=== PATIENT | female | born 1965 | race Caucasian/White ===

== ENCOUNTER 2024-01-11 10:58 | Outpatient (CLI) | payer BC, SELFPAY ==
--- NOTE | 2024-01-11 11:02 | XR_ITS ---
FINAL REPORT CLINICAL HISTORY: right ankle injury COMPARISON: None FINDINGS: RIGHT ANKLE 3 views of the right ankle were obtained. There is no acute fracture or dislocation. The mortise is intact. Visualized joint spaces are normally aligned. There is mild calcaneal spurring. Soft tissues are unremarkable. IMPRESSION: No acute bony abnormality. Reviewed, Interpreted and Dictated by Josefina Santana MD Transcribed by Elodia Agee Authenticated and . [facility]
--- NOTE | 2024-01-11 11:02 | XR_ITS ---
FINAL REPORT CLINICAL HISTORY: Rt Foot pain COMPARISON: None FINDINGS: RIGHT FOOT 3 views of the right foot were obtained. There is no acute fracture or dislocation. There is mild deformity of the fourth metatarsal neck compatible with old healed fracture. No significant degenerative changes are noted. Visualized joint spaces are normally aligned. Soft tissues are unremarkable. IMPRESSION: No acute bony abnormality. Reviewed, Interpreted and Dictated by Josefina Santana MD Transcribed by Elodia Agee Authenticated and [facility]
== END 2024-01-11 23:59 | disposition home or self-care (01) ==
LOC: RAD 10:59
PROVIDERS: PCP Nurse Practitioner Family; Visit Provider Physician Assistant
DX: M25.571 Pain in right ankle and joints of right foot (principal); M79.671 Pain in right foot; S99.921A Unspecified injury of right foot, initial encounter; S93.401A Sprain of unspecified ligament of right ankle, initial encounter
CPT/HCPCS: 73610; 73630

== ENCOUNTER 2024-01-25 12:09 | Outpatient (RCR) | payer BC, SELFPAY | END 2024-01-25 13:30 | disposition home or self-care (01) | LOC: PT 12:09 | PROVIDERS: Visit Provider Physician Assistant | DX: M25.571 Pain in right ankle and joints of right foot (principal); S93.401A Sprain of unspecified ligament of right ankle, initial encounter; S90.01XA Contusion of right ankle, initial encounter | CPT/HCPCS: 97760 ==

== ENCOUNTER 2024-05-08 13:30 | Emergency (ER) | payer BC, SELFPAY ==
[2024-05-08] VITALS (11 sets, daily range): BP systolic 114–142; BP diastolic 77–91; PULSE 83–99; RESP 14–16; TEMP 36.5–36.6; O2SAT 94–99; BMI 23.3
--- NOTE | 2024-05-08 13:53 | XR_ITS ---
PROCEDURE INFORMATION: Exam: XR Left Knee Exam date and time: 05/08/2024 1:53 PM Age: 59 years old Clinical indication: Injury or trauma; Fall; Blunt trauma; Knee; Left; Additional info: Fall, pain, unable to bear weight TECHNIQUE: Imaging protocol: Radiologic exam of the left knee. Views: 3 views. COMPARISON: CR XR FEMUR LT 2V 05/08/2024 1:53 PM FINDINGS: Bones/joints: Well corticated avulsion fracture of the lateral intercondylar eminence consistent with remote avulsion fracture. There is no evidence of acute fracture.There is no evidence of malalignment or dislocation. Small suprapatellar joint effusion Soft tissues: Normal. IMPRESSION: 1. Well corticated avulsion fracture of the lateral intercondylar eminence consistent with remote avulsion fracture. 2. There is no evidence of acute fracture.There is no evidence of malalignment or dislocation.
--- NOTE | 2024-05-08 13:53 | XR_ITS ---
PROCEDURE INFORMATION: Exam: XR Left Hip Exam date and time: 05/08/2024 1:53 PM Age: 59 years old Clinical indication: Injury or trauma; Fall; Blunt trauma (contusions or hematomas); Left; Pelvic region; Additional info: Fall, pain, unable to bear weight TECHNIQUE: Imaging protocol: Radiologic exam of the left hip. Views: 2 or 3 views hip with pelvis when performed. COMPARISON: CR XR FEMUR LT 2V 05/08/2024 1:53 PM FINDINGS: Bones/joints: Degenerative changes in both hips. There is no evidence of acute fracture.There is no evidence of malalignment or dislocation. Soft tissues: Metallic foreign body overlies the right iliac crest consistent with prior trauma IMPRESSION: There is no evidence of acute fracture.There is no evidence of malalignment or dislocation.
--- NOTE | 2024-05-08 13:53 | XR_ITS ---
PROCEDURE INFORMATION: Exam: XR Left Femur Exam date and time: 05/08/2024 1:53 PM Age: 59 years old Clinical indication: Injury or trauma; Fall; Blunt trauma; Thigh or upper leg; Left; Additional info: Fall, pain, unable to bear weight TECHNIQUE: Imaging protocol: Radiologic exam of the left femur. Views: 2 views. COMPARISON: CR XR FEMUR LT 2V 05/08/2024 1:53 PM FINDINGS: Bones/joints: There is no evidence of acute fracture.There is no evidence of malalignment or dislocation. Soft tissues: Unremarkable. IMPRESSION: There is no evidence of acute fracture.There is no evidence of malalignment or dislocation.
--- NOTE | 2024-05-08 13:53 | XR_ITS ---
PROCEDURE INFORMATION: Exam: XR Left Tibia and Fibula Exam date and time: 05/08/2024 1:53 PM Age: 59 years old Clinical indication: Injury or trauma; Fall; Blunt trauma; Lower leg; Left; Additional info: Fall, pain, unable to bear weight TECHNIQUE: Imaging protocol: Radiologic exam of the left tibia and fibula. Views: 2 views. COMPARISON: CR XR TIBIA FIBULA LT 2V 05/08/2024 1:53 PM FINDINGS: Bones/joints: There is no evidence of acute fracture.There is no evidence of malalignment or dislocation. Degenerative changes in the knee and the ankle Soft tissues: Normal. IMPRESSION: There is no evidence of acute fracture.There is no evidence of malalignment or dislocation.
--- NOTE | 2024-05-08 13:54 | ED_ITS ---
Discharge Plan Disposition Patient Disposition: Home, Self-Care Condition: Good Prescriptions Prescriptions: No Action oxycodone 5 mg tablet 5 mg PO Q8H PRN (Reason: pain) Qty: 12 0RF Referrals Follow up/Referrals: Chiki Arthur DO [Staff Physician] - See instructions Lili Ruelas APRN [Primary Care Provider] - See instructions Activity Restrictions/Add. Instructions Additional Instructions/Restrictions: You were evaluated in the emergency department today. At this time, x-rays do not demonstrate any acute broken bones. Please follow-up closely with orthopedics for further evaluation and management. Use your crutches to offload weight on your left knee since it is painful to bear weight. Take Tylenol and Aleve at home every 4-6 hours at home as needed for pain. Rest, ice, and elevate your lower extremity. Return to the emergency department for new or worsening symptoms. Clinical Impressions Clinical Impression: Acute pain of left knee Stand Alone Forms Stand Alone Forms: Work/School Release Instructions Patient Instructions: DI for Knee Pain Print Language Print Language: Turkmen Discharge ED Provider: Hellen Bro General Adult HPI General Chief complaint: Extremity Injury, Lower Stated complaint: AO 05/07 left knee sweeling pain Time Seen by Provider: 05/08/24 13:45 Mode of Arrival: Ambulatory Source of Information: Patient Limitations: No Limitations Description of Symptoms (Recalled from ER Triage Doc. by RN): pt states she tripped last night and fell on her L knee. pt c/o sharp, throbbing, 9/10 pain. pt states she took 1 OTC alieve around 1000 this am. History of Present Illness HPI narrative: This patient is a 59-year-old female who denies significant past medical history presenting to the emergency department for evaluation with concern for left knee pain after she fell. She reports that yesterday she tripped and fell, landing on her left knee. She has had pain just above her left knee and inability bear weight. She states she feels like she has fluid on her knee. She did not hit her head or lose consciousness. She does not take any blood thinners or aspirin. She denies any numbness, tingling, or other concerns. She was well prior to the fall. Related Data Previous Rx's ?Medication ?Instructions ?Recorded oxycodone 5 mg tablet 5 mg PO Q8H PRN pain #12 tabs 12/26/23 Allergies Allergy/AdvReac Type Severity Reaction Status Date / Time From Penicillin V Potassium Allergy Unknown Unknown Uncoded 05/08/24 13:46 allergy reaction Ibuprofen Allergy Unknown Hives Uncoded 05/08/24 13:46 Penicillin Allergy Unknown Unknown Uncoded 05/08/24 13:46 allergy reaction PFSH [facility] Disclaimer: The information contained in this section may have been updated after the patient was seen, as this information can be updated by other users. Social History Smoking Status: Current every day smoker alcohol intake: never current occupational status: employed Travel in the last 8 weeks: None ROS Obtained: Yes All systems reviewed & no additional complaints except as documented Physical Exam General General appearance: alert and in no apparent distress Head Head exam: atraumatic and normocephalic Eye Eye exam: Present normal appearance, PERRL and EOMI ENT ENT exam: Present normal exam, normal oropharynx, mucous membranes moist and normal external ear exam Neck Neck exam: Present normal inspection, full ROM and trachea midline; Absent tenderness Chest Chest inspection: Present normal inspection and symmetric chest wall rise; Absent tenderness Respiratory Respiratory exam: Present normal lung sounds bilaterally; Absent respiratory distress, wheezes, stridor or accessory muscle use Cardiovascular Cardiovascular exam: Present regular rate and normal rhythm Abdominal Exam Abdominal exam: Present soft; Absent distention, tenderness or guarding Extremities Exam Extremities exam: Present full ROM, tenderness (suprapatellar), normal capillary refill, joint swelling (L knee, mild) and other (All compartment soft, neurovascularly intact distally. Intact range of motion. No appreciable ligamentous laxity. Straight leg raise intact.); Absent edema Back Exam Back exam: Present normal inspection and full ROM; Absent tenderness Neurological Exam Neurological exam: Present alert, oriented X3, CN II-XII intact and normal gait; Absent motor sensory deficit Psychiatric Psychiatric exam: Present normal affect and normal mood Skin Skin exam: Present warm and dry Medical Decision Making Medical Records Medical records reviewed: Yes I reviewed the patient's medical records. Screening: Per USPSTF and CDC recommendations, given the prevalence of disease in our region, it is our hospital?s policy to screen for HIV and viral Hepatitis for all patients aged 18 and over and those with ongoing risk factors. Rj Inquiry Pt receiving controlled substance: No Vital Signs: 05/08/24 13:37 05/08/24 13:38 05/08/24 13:45 Temperature 97.7 F Temperature Source Oral Pulse Rate 98 H 98 H Pulse Rate [Left] 94 H Respiratory Rate 14 Blood Pressure 121/81 114/77 Blood Pressure [Right Arm] 121/81 Blood Pressure Mean [Right Arm] 94 Blood Pressure Source [Right Arm] Automatic Cuff Blood Pressure Position [Right Arm] Sitting 02 Sat by Pulse Oximetry 99 97 98 Oxygen Delivery Method Room Air 05/08/24 14:00 05/08/24 14:15 05/08/24 14:30 Temperature Temperature Source Pulse Rate 99 H 90 84 Pulse Rate [Left] Respiratory Rate Blood Pressure 136/85 131/83 127/88 Blood Pressure [Right Arm] Blood Pressure Mean [Right Arm] Blood Pressure Source [Right Arm] Blood Pressure Position [Right Arm] 02 Sat by Pulse Oximetry 97 94 L 95 Oxygen Delivery Method 05/08/24 14:45 05/08/24 15:00 05/08/24 15:15 Temperature Temperature Source Pulse Rate 86 88 87 Pulse Rate [Left] Respiratory Rate Blood Pressure 131/88 135/91 H 142/91 H Blood Pressure [Right Arm] Blood Pressure Mean [Right Arm] Blood Pressure Source [Right Arm] Blood Pressure Position [Right Arm] 02 Sat by Pulse Oximetry 94 L 94 L 94 L Oxygen Delivery Method 05/08/24 15:30 Temperature Temperature Source Pulse Rate 99 H Pulse Rate [Left] Respiratory Rate Blood Pressure 140/87 Blood Pressure [Right Arm] Blood Pressure Mean [Right Arm] Blood Pressure Source [Right Arm] Blood Pressure Position [Right Arm] 02 Sat by Pulse Oximetry 94 L Oxygen Delivery Method Lab Data Lab results reviewed: Yes I reviewed the patient's lab results. Orders (Tests/Meds): ED MEDICATIONS Discontinued Medications Generic Name Dose Route Start Last Admin Trade Name Freq PRN Reason Stop Dose Admin Acetaminophen 1,000 mg 05/08/24 13:53 05/08/24 13:57 Acetaminophen 500mg Tab PO 05/08/24 13:54 1,000 mg ONCE ONE Administration Ibuprofen 800 mg 05/08/24 13:53 05/08/24 14:09 Ibuprofen 400 Mg Tablet PO 05/08/24 13:54 Not Given ONCE ONE ORDERS Category Date Time Status Femur XR left 2 views [XR femur LT 2V] Stat Exams 05/08/24 13:53 Completed Hip XR left minimum 2 views [XR hip LT 2-3V w/pelvis] Exams 05/08/24 13:53 Completed Stat Knee XR left 3 views [XR knee LT 3V] Stat Exams 05/08/24 13:53 Completed Tibia/fibula XR left 2 views [XR tibia fibula LT 2V] Exams 05/08/24 13:53 Completed Stat Medical Decision Narrative: In summary, this patient is a 59-year-old female presenting to the Emergency Department for evaluation of left knee pain after a mechanical ground-level f all. Differential diagnoses considered include but are not limited to hip fracture, femur fracture, knee injury, tibial plateau fracture, ligamentous injury, cartilaginous injury, neurovascular injury. Ruling out the most morbid conditions drove assessment. On exam, the patient is lying in bed in no acute distress. She has no appreciable ligamentous laxity noted in her left knee and has intact straight leg raise. She is neurovascularly intact distally. Workup included x-rays of the left hip, femur, knee, and tib-fib. She was given oral Tylenol and ibuprofen for symptomatic improvement of pain. I independently interpreted x- rays prior to the radiologist read and noted no obvious acute fracture. Please see their read for final interpretation. On reassessment, the patient is resting comfortably. Ultimately given reassuring x-rays and exam, I feel that she is appropriate for discharge home with outpatient follow-up with orthopedics for further evaluation and management. She already has crutches. She was given instructions for supportive management, strict return precautions, and she was discharged after all questions were answered Critical Care Critical Care Time Critical Care Time: No
[2024-05-08] MEDS: ACETAMINOPHEN 500MG TAB 1000 MG PO (13:57)
== END 2024-05-08 15:56 | disposition home or self-care (01) ==
PROVIDERS: Emergency Provider Emergency Medicine; PCP Nurse Practitioner Family
DX: M25.562 Pain in left knee (principal)
CPT/HCPCS: 73502; 73552; 73562; 73590; 99283